=== PATIENT | male | born 1955 | race Two or more races ===

== ENCOUNTER 2020-09-04 10:15 | Emergency (ER) | payer MEDICARE ==
[~2020-09-04] VITALS: Ht 175.3 cm; Wt 63.8 kg
--- NOTE | 2020-09-04 11:05 | NUR ---
Edilma RN notified of bladder scan result.
[2020-09-04 11:09] LABS: BILIRUBIN,URINE NEGATIVE (NEG); CLARITY,URINE CLEAR; COLOR,URINE YELLOW; NITRITE,URINE NEGATIVE (NEG); PROTEIN,URINE NEGATIVE (NEG-TRACE); UROBILINOGEN,URINE 0.2 mg/dL (0.2 mg/dL)
[2020-09-04 11:20] LABS: BACTERIA,URINE 0 /HPF (0-FEW); RBC,URINE 0 /HPF (0-2); WBC,URINE 0 /HPF (0-4)
--- NOTE | 2020-09-04 11:43 | PHYS DOC ---
Past Medical History Past Medical History: Hypertension, Other Additional Past Medical Histor: BPH Past Surgical History: Other Additional Past Surgical Histo: removal of scar tissue from urethra Smoking Status: Never Smoker Alcohol Use: None General Adult EDM: Chief Complaint: URINARY RETENTION HPI: HPI: Patient is a 65 year old male presents to the emergency department with complaints of difficulty with urination for years. Patient states he is coming to the emergency department this he was wrong. Patient states he has a history of enlarged prostate and takes a urine medication that he cannot recall the name of. Patient states he does not have a primary care doctor. Patient states he does not see a urologist. Patient states he was started on a urine medication when he was seen at the emergency department at [facility] over a year ago. Patient states he did not follow-up with urology as recommended. Patient currently denies any abdominal pain, nausea, vomiting, diarrhea, patient denies any chest pain cough or congestion. Patient denies any rashes to his skin. Patient denies any burning with urination. Patient states his only complaint is it is hard to urinate and it feels full in his bladder. Review of Systems: Review of Systems: 14 body systems of review of systems have been reviewed. See HPI for pertinent positives and negative responses, otherwise all other systems are negative, nonpertinent or noncontributory. Heart Score: C/O Chest Pain: No Risk Factors: Risk Factors: DM, Current or recent (<one month) smoker, HTN, HLP, family history of CAD, obesity. Risk Scores: Score 0 - 3: 2.5% MACE over next 6 weeks - Discharge Home Score 4 - 6: 20.3% MACE over next 6 weeks - Admit for Clinical Observation Score 7 - 10: 72.7% MACE over next 6 weeks - Early Invasive Strategies Allergies: Allergies: Allergies Coded Allergies Type Severity Reaction Last Updated Verified No Known Drug Allergies 09/04/20 No Physical Exam: PE: Constitutional: Well developed, well nourished, no acute distress, non-toxic appearance. 65-year-old male in no apparent distress. HENT: Normocephalic, atraumatic, bilateral external ears normal, oropharynx moist, no oral exudates, nose normal. Oropharynx pink, moist, no infectious process appreciated, no lymphadenopathy of the head or neck appreciated. Eyes: PERRLA, EOMI, conjunctiva normal, no discharge. Neck: Normal range of motion, no tenderness, supple, no stridor. No nuchal rigidity, no meningismus signs. Cardiovascular:Heart rate regular rhythm, no murmur, heart sounds S1-S2 auscultation. Lungs & Thorax: Bilateral breath sounds clear to auscultation no adventitious lung sounds appreciated. Abdomen: Bowel sounds normal, soft, no tenderness, no masses, no pulsatile masses. Skin: Warm, dry, no erythema, no rash. Back: No tenderness, no CVA tenderness. Extremities: No tenderness, no cyanosis, no clubbing, ROM intact, no edema. Neurologic: Alert and oriented X 3, normal motor function, normal sensory function, no focal deficits noted. Psychologic: Affect normal, judgement normal, mood normal. : Patient refused prostate examination, the patient is circumcised, no rashes or lesions or swelling of the penis or scrotal sac. Current Patient Data: Labs: Laboratory Tests Test 09/04/20 10:44 Urine Collection Type Void Urine Color Yellow Urine Clarity Clear Urine pH 7.0 (<5.0-8.0) Urine Specific [place] <=1.005 (1.000-1.030) Urine Protein Negative mg/dL (NEG-TRACE) Urine Glucose (UA) Negative mg/dL (NEG) Urine Ketones (Stick) Negative mg/dL (NEG) Urine Blood Negative (NEG) Urine Nitrite Negative (NEG) Urine Bilirubin Negative (NEG) Urine Urobilinogen Dipstick 0.2 mg/dL (0.2 mg/dL) Urine Leukocyte Esterase Negative (NEG) Urine RBC 0 /HPF (0-2) Urine WBC 0 /HPF (0-4) Urine Bacteria 0 /HPF (0-FEW) Vital Signs: Vital Signs Date Time Temp Pulse Resp B/P (MAP) Pulse Ox O2 Delivery O2 Flow Rate FiO2 09/04/20 10:20 98.5 83 18 158/85 (109) 97 Room Air 98.5 EKG: EKG: [] Radiology/Procedures: Radiology/Procedures: [] Course & Med Decision Making: Course & Med Decision Making Pertinent Labs and Imaging studies reviewed. (See chart for details) 65-year-old male, vital signs reviewed, presents emergency department complaining of problems urinating for over a year. Physical examination conc erning for urinary retention. Patient did refuse prostate exam. A post void bladder scan revealed 530 cc remaining after 150 cc clear yellow urine. A urine specimen was sent to the lab for urinalysis assay. Urinalysis assay negative, his urine was not infected. Recommended to patient placing urinary indwelling Pate catheter to dependent drainage and follow-up with urology. Patient has refused this. Patient has voided an additional 100 cc clear yellow urine. Discussed with patient benefits of having Pate catheter placement. Patient continues to refuse Pate catheter placement. Patient also continues to refuse digital prostate examination. Discussed with patient strict follow-up with urology care, will give referral so he may make appointment today, discussed with patient strict follow-up with primary care, will give referral so he may make appointment today. Discussed with patient leaving AGAINST MEDICAL ADVICE related to recommendation of Pate placement. Patient gave verbal understanding of complications of ongoing urinary retention, states he will sign AGAINST MEDICAL ADVICE form. Is of my opinion patient is alert and oriented x3, patient is able to make his own educated medical decisions, patient has signed AGAINST MEDICAL ADVICE form, patient gave verbal understanding of discharge home instructions, strict follow-up with primary care and urology care, strict return to ER precautions and concerns, patient had no further questions or concerns and was discharged home without incident. Dragon Disclaimer: Biometric Security Disclaimer: This electronic medical record was generated, in whole or in part, using a voice recognition dictation system. Departure Departure Impression: Primary Impression: Urinary retention Disposition: LEFT AGAINST MEDICAL ADVICE Condition: STABLE Referrals: NO PCP (PCP) KIRK MENA MD Patient Instructions: Urinary Retention, Acute, Male Additional Instructions: You are seen today in the emergency department for urinary retention problems. I have recommended a prostate examination and a Pate catheter placement to complete an emergency examination. You have refused this. You are leaving the emergency department AGAINST MEDICAL ADVICE. I strongly recommend you follow-up with a primary care physician, please make an appointment today. If you are unable to secure a primary care appointment with your doctor, I have given you Dr. Du Mena as a primary care physician to follow-up with. I also strongly recommend you make an appointment today to see a urologist for ongoing examination of your urinary retention problems. Please call [facility] at [facility], [place], [place] [address] [place] [phone] Patient does not wish to proceed with medical care recommended by VASQUEZ Roe. Patient given information related to possible complications, up to and including , which could occur as a result of leaving the hospital at this time. Patient verbalizes understanding of risks involved due to leaving against medical advice. Patient has signed AMA form. PARVIZ RODRIGUEZ APRN September 04, 2020 11:43
[2020-09-04 12:18] VITALS: BP 158/84
== END 2020-09-04 12:30 | disposition left against medical advice (07) ==
LOC: ER 10:15
DX: N40.1 Benign prostatic hyperplasia with lower urinary tract symptoms (principal); R33.8 Other retention of urine; I10 Essential (primary) hypertension
CPT/HCPCS: 81001; 99283